=== PATIENT | female | born 1975 | race Two or more races ===

== ENCOUNTER 2019-10-27 15:12 | Emergency (ER) | payer OTHER ==
[~2019-10-27] VITALS: Ht 157.5 cm; Wt 86.6 kg
[2019-10-27 15:22] VITALS: BP 164/63
--- NOTE | 2019-10-27 15:48 | NUR ---
COVID SWAB OBTAINED AND SENT TO LAB.
== END 2019-10-27 15:49 | disposition home or self-care (01) ==
LOC: ER 15:20
DX: Z11.59 Encounter for screening for other viral diseases (principal)
CPT/HCPCS: 99283; C9803; U0003

== ENCOUNTER 2019-11-03 13:14 | Emergency (ER) | payer OTHER ==
[~2019-11-03] VITALS: Ht 157.5 cm; Wt 81.6 kg
[2019-11-03 13:24] VITALS: BP 144/73
--- NOTE | 2019-11-03 13:48 | NUR ---
COVID TESTING DONE & SENT TO LAB.
== END 2019-11-03 13:49 | disposition home or self-care (01) ==
LOC: ER 13:14
DX: Z11.59 Encounter for screening for other viral diseases (principal)
CPT/HCPCS: 99283; C9803; U0003

== ENCOUNTER 2019-11-17 14:33 | Emergency (ER) | payer OTHER ==
--- NOTE | 2019-11-17 15:22 | NUR ---
called for triage not in the waiting room
--- NOTE | 2019-11-17 15:27 | NUR ---
called for triage not in the waiting room
--- NOTE | 2019-11-17 15:34 | NUR ---
called for triage not in the waiting room
== END 2019-11-17 15:46 | disposition left against medical advice (07) ==
LOC: ER 14:33
DX: Z53.21 Procedure and treatment not carried out due to patient leaving prior to being seen by health care provider (principal)

== ENCOUNTER 2019-12-02 14:03 | Emergency (ER) | payer OTHER ==
[~2019-12-02] VITALS: Ht 157.5 cm; Wt 81.6 kg
[2019-12-02 14:07] VITALS: BP 128/81
--- NOTE | 2019-12-02 14:27 | NUR ---
COVID SWAB OBTAINED AND SENT TO LAB.
--- NOTE | 2019-12-02 14:30 | NUR ---
Patient discharged to home in stable condition. Written and verbal after care instructions given. Patient verbalizes understanding of instruction.
== END 2019-12-02 14:32 | disposition home or self-care (01) ==
LOC: ER 14:04
DX: Z03.818 Encounter for observation for suspected exposure to other biological agents ruled out (principal)
CPT/HCPCS: 99283; C9803; U0003

== ENCOUNTER 2019-12-08 14:11 | Emergency (ER) | payer OTHER ==
[~2019-12-08] VITALS: Ht 157.5 cm; Wt 81.6 kg
[2019-12-08 14:15] VITALS: BP 128/77
--- NOTE | 2019-12-08 14:33 | NUR ---
COVID SWAB DONE AND SENT TO LAB
--- NOTE | 2019-12-08 14:36 | NUR ---
Patient discharged to home in stable condition. Written and verbal after care instructions given. Patient verbalizes understanding of instruction. Pt ambulatory with a steady gait
== END 2019-12-08 14:37 | disposition home or self-care (01) ==
LOC: ER 14:13
DX: Z11.59 Encounter for screening for other viral diseases (principal)
CPT/HCPCS: 99283; C9803; U0003

== ENCOUNTER 2019-12-15 11:10 | Emergency (ER) | payer OTHER ==
[~2019-12-15] VITALS: Ht 157.5 cm; Wt 81.6 kg
[2019-12-15 11:15] VITALS: BP 138/77
== END 2019-12-15 11:31 | disposition home or self-care (01) ==
LOC: ER 11:12
DX: Z11.59 Encounter for screening for other viral diseases (principal)
CPT/HCPCS: 99283; C9803; U0003

== ENCOUNTER 2019-12-22 11:00 | Emergency (ER) | payer OTHER ==
[~2019-12-22] VITALS: Ht 157.5 cm; Wt 81.6 kg
[2019-12-22 11:05] VITALS: BP 126/70
--- NOTE | 2019-12-22 11:20 | NUR ---
Patient discharged to home in stable condition. Written and verbal after care instructions given. Patient verbalizes understanding of instruction.
== END 2019-12-22 11:21 | disposition home or self-care (01) ==
LOC: ER 11:00
DX: Z00.8 Encounter for other general examination (principal); Z20.828 Contact with and (suspected) exposure to other viral communicable diseases
CPT/HCPCS: 99283; C9803; U0003

== ENCOUNTER 2020-01-05 15:47 | Emergency (ER) | payer OTHER ==
[~2020-01-05] VITALS: Ht 157.5 cm; Wt 81.6 kg
[2020-01-05 16:03] VITALS: BP 120/79
--- NOTE | 2020-01-05 16:30 | NUR ---
COVID SWAB DONE AND SENT TO LAB
--- NOTE | 2020-01-05 16:31 | NUR ---
Patient discharged to home in stable condition. Written and verbal after care instructions given. Patient verbalizes understanding of instruction. Pt ambulatory with a steady gait
== END 2020-01-05 17:07 | disposition home or self-care (01) ==
LOC: ER 16:45
DX: Z20.828 Contact with and (suspected) exposure to other viral communicable diseases (principal)
CPT/HCPCS: 99283; C9803; U0003

== ENCOUNTER 2020-01-12 15:27 | Emergency (ER) | payer OTHER ==
[~2020-01-12] VITALS: Ht 157.5 cm; Wt 84.4 kg
[2020-01-12 15:30] VITALS: BP 128/72
--- NOTE | 2020-01-12 16:00 | NUR ---
COVID SPECIMEN OBTAINED AND SENT TO LAB.
== END 2020-01-12 16:10 | disposition home or self-care (01) ==
LOC: ER 15:28
DX: Z20.828 Contact with and (suspected) exposure to other viral communicable diseases (principal)
CPT/HCPCS: 99283; C9803; U0003

== ENCOUNTER 2020-01-26 11:13 | Emergency (ER) | payer OTHER ==
[~2020-01-26] VITALS: Ht 157.5 cm; Wt 81.6 kg
[2020-01-26 11:15] VITALS: BP 148/81
--- NOTE | 2020-01-26 11:20 | NUR ---
COVID SPECIMEN OBTAINED AND SENT TO LAB.
--- NOTE | 2020-01-26 11:22 | NUR ---
Patient discharged to home in stable condition. Written and verbal after care instructions given. Patient verbalizes understanding of instruction.
== END 2020-01-26 11:22 | disposition home or self-care (01) ==
LOC: ER 11:14
DX: Z20.828 Contact with and (suspected) exposure to other viral communicable diseases (principal)
CPT/HCPCS: 99283; C9803; U0003

== ENCOUNTER 2020-02-02 08:04 | Emergency (ER) | payer OTHER ==
[~2020-02-02] VITALS: Ht 157.5 cm; Wt 81.6 kg
[2020-02-02 08:07] VITALS: BP 138/66
--- NOTE | 2020-02-02 08:24 | NUR ---
Patient discharged to home in stable condition. Verbal after care instructions given. Patient verbalizes understanding of instruction.
== END 2020-02-02 08:24 | disposition home or self-care (01) ==
LOC: ER 08:05
DX: Z20.828 Contact with and (suspected) exposure to other viral communicable diseases (principal)
CPT/HCPCS: 99283; C9803; U0003

== ENCOUNTER 2020-02-09 09:11 | Emergency (ER) | payer OTHER ==
[~2020-02-09] VITALS: Ht 157.5 cm; Wt 81.6 kg
[2020-02-09 09:12] VITALS: BP 134/81
--- NOTE | 2020-02-09 09:48 | NUR ---
Patient discharged to home in stable condition. Written and verbal after care instructions given. Patient verbalizes understanding of instruction.
== END 2020-02-09 09:50 | disposition home or self-care (01) ==
LOC: ER 09:12
DX: Z20.828 Contact with and (suspected) exposure to other viral communicable diseases (principal)
CPT/HCPCS: 99283; C9803; U0003

== ENCOUNTER 2020-02-16 10:18 | Emergency (ER) | payer OTHER ==
[~2020-02-16] VITALS: Ht 170.2 cm; Wt 81.6 kg
[2020-02-16 10:21] VITALS: BP 120/72
--- NOTE | 2020-02-16 10:23 | NUR ---
CALLED LAB FOR COVID KIT.
--- NOTE | 2020-02-16 10:44 | NUR ---
Patient discharged to home in stable condition. Written and verbal after care instructions given. Patient verbalizes understanding of instruction.
== END 2020-02-16 10:45 | disposition home or self-care (01) ==
LOC: ER 10:20
DX: Z20.828 Contact with and (suspected) exposure to other viral communicable diseases (principal)
CPT/HCPCS: 99283; C9803; U0003

== ENCOUNTER 2020-02-23 10:35 | Emergency (ER) | payer OTHER ==
[~2020-02-23] VITALS: Ht 157.5 cm; Wt 81.6 kg
[2020-02-23 10:38] VITALS: BP 132/81
== END 2020-02-23 10:59 | disposition home or self-care (01) ==
LOC: ER 10:42
DX: Z20.828 Contact with and (suspected) exposure to other viral communicable diseases (principal)
CPT/HCPCS: 99283; C9803; U0003

== ENCOUNTER 2020-03-01 10:36 | Emergency (ER) | payer OTHER ==
[~2020-03-01] VITALS: Ht 160 cm; Wt 81.6 kg
[2020-03-01 10:40] VITALS: BP 123/74
--- NOTE | 2020-03-01 11:13 | NUR ---
Patient discharged to home in stable condition. Written and verbal after care instructions given. Patient verbalizes understanding of instruction.
== END 2020-03-01 11:13 | disposition home or self-care (01) ==
LOC: ER 10:37
DX: Z20.828 Contact with and (suspected) exposure to other viral communicable diseases (principal)
CPT/HCPCS: 99283; C9803; U0003

== ENCOUNTER → 2020-03-08 | Emergency (ER) | payer OTHER ==
[~2020-03-08] VITALS: Ht 157.5 cm; Wt 72.6 kg
[2020-03-08 11:01] VITALS: BP 122/66
--- NOTE | 2020-03-08 11:20 | NUR ---
Patient discharged to home in stable condition. Written and verbal after care instructions given. Patient verbalizes understanding of instruction.
--- NOTE | 2020-03-08 11:20 | NUR ---
covid 19 swab collected and sent to lab
== END | disposition still patient (30) ==
LOC: ER 11:02
DX: Z20.828 Contact with and (suspected) exposure to other viral communicable diseases (principal)
CPT/HCPCS: 99283; C9803; U0003

== ENCOUNTER 2020-03-15 14:36 | Emergency (ER) | payer OTHER ==
[~2020-03-15] VITALS: Ht 157.5 cm; Wt 81.6 kg
[2020-03-15 14:39] VITALS: BP 128/70
--- NOTE | 2020-03-15 14:56 | NUR ---
Patient discharged to home in stable condition. Written and verbal after care instructions given. Patient verbalizes understanding of instruction.
== END 2020-03-15 14:56 | disposition home or self-care (01) ==
LOC: ER 14:37
DX: Z20.828 Contact with and (suspected) exposure to other viral communicable diseases (principal)
CPT/HCPCS: 99283; U0003; C9803

== ENCOUNTER 2020-03-22 11:15 | Emergency (ER) | payer OTHER ==
[~2020-03-22] VITALS: Ht 157.5 cm; Wt 81.6 kg
[2020-03-22 11:20] VITALS: BP 125/82
--- NOTE | 2020-03-22 11:36 | NUR ---
covid 19 swab collected and sent to lab
--- NOTE | 2020-03-22 11:36 | NUR ---
Patient discharged to home in stable condition. Written and verbal after care instructions given. Patient verbalizes understanding of instruction.
== END 2020-03-22 11:37 | disposition home or self-care (01) ==
LOC: ER 11:17
DX: Z20.828 Contact with and (suspected) exposure to other viral communicable diseases (principal)
CPT/HCPCS: 99283; C9803; U0003

== ENCOUNTER → 2020-03-29 | Emergency (ER) | payer OTHER ==
[~2020-03-29] VITALS: Ht 157.5 cm; Wt 81.6 kg
[2020-03-29 10:57] VITALS: BP 119/64
== END | disposition home or self-care (01) ==
LOC: ER 10:57
DX: Z20.828 Contact with and (suspected) exposure to other viral communicable diseases (principal)
CPT/HCPCS: 99283; C9803; U0003

== ENCOUNTER 2020-04-12 13:20 | Emergency (ER) | payer OTHER ==
[~2020-04-12] VITALS: Ht 157.5 cm; Wt 81.6 kg
[2020-04-12 13:23] VITALS: BP 129/84
--- NOTE | 2020-04-12 13:42 | NUR ---
COVID SWAB SENT. Patient discharged to home in stable condition. Written and verbal after care instructions given. Patient verbalizes understanding of instruction.
== END 2020-04-12 13:42 | disposition home or self-care (01) ==
LOC: ER 13:21
DX: Z20.828 Contact with and (suspected) exposure to other viral communicable diseases (principal)
CPT/HCPCS: 99283; C9803; U0003

== ENCOUNTER 2020-04-19 12:09 | Emergency (ER) | payer OTHER ==
[~2020-04-19] VITALS: Ht 157.5 cm; Wt 81.6 kg
[2020-04-19 12:16] VITALS: BP 136/74
--- NOTE | 2020-04-19 12:52 | NUR ---
Patient discharged to home in stable condition. Written and verbal after care instructions given. Patient verbalizes understanding of instruction.
== END 2020-04-19 12:52 | disposition home or self-care (01) ==
LOC: ER 12:10
DX: Z20.828 Contact with and (suspected) exposure to other viral communicable diseases (principal)
CPT/HCPCS: 99283; C9803; U0003

== ENCOUNTER 2020-04-26 09:03 | Emergency (ER) | payer OTHER ==
[~2020-04-26] VITALS: Ht 157.5 cm; Wt 81.6 kg
[2020-04-26 09:12] VITALS: BP 128/76
== END 2020-04-26 09:36 | disposition home or self-care (01) ==
LOC: ER 09:08
DX: Z20.828 Contact with and (suspected) exposure to other viral communicable diseases (principal)
CPT/HCPCS: 99283; C9803; U0003

== ENCOUNTER 2020-05-03 11:37 | Emergency (ER) | payer OTHER ==
[~2020-05-03] VITALS: Ht 157.5 cm; Wt 81.6 kg
[2020-05-03 11:40] VITALS: BP 135/81
--- NOTE | 2020-05-03 12:34 | NUR ---
Patient discharged to home in stable condition. Written and verbal after care instructions given. Patient verbalizes understanding of instruction.
--- NOTE | 2020-05-04 14:17 | NUR ---
COVID PCR RESULT: NEGATIVE
== END 2020-05-03 12:33 | disposition home or self-care (01) ==
LOC: ER 11:40
DX: Z20.828 Contact with and (suspected) exposure to other viral communicable diseases (principal)
CPT/HCPCS: 99283; C9803; U0003

== ENCOUNTER 2020-05-10 08:28 | Emergency (ER) | payer OTHER ==
[~2020-05-10] VITALS: Ht 157.5 cm; Wt 81.6 kg
[2020-05-10 08:37] VITALS: BP 126/72
== END 2020-05-10 09:08 | disposition home or self-care (01) ==
LOC: ER 08:30
DX: Z20.828 Contact with and (suspected) exposure to other viral communicable diseases (principal)
CPT/HCPCS: 99283; C9803; U0003

== ENCOUNTER 2020-05-17 09:46 | Emergency (ER) | payer OTHER ==
[~2020-05-17] VITALS: Ht 157.5 cm; Wt 81.6 kg
[2020-05-17 09:54] VITALS: BP 128/74
--- NOTE | 2020-05-17 09:59 | NUR ---
AT BEDSIDE FOR EVAL.
--- NOTE | 2020-05-17 10:34 | NUR ---
COVID SWAB SENT. Patient discharged to home in stable condition. Written and verbal after care instructions given. Patient verbalizes understanding of instruction.
== END 2020-05-17 10:34 | disposition home or self-care (01) ==
LOC: ER 09:47
DX: Z20.822 Contact with and (suspected) exposure to COVID-19 (principal)
CPT/HCPCS: 99283; C9803; U0003

== ENCOUNTER 2020-05-24 10:19 | Emergency (ER) | payer OTHER ==
[~2020-05-24] VITALS: Ht 157.5 cm; Wt 81.6 kg
[2020-05-24 10:39] VITALS: BP 128/74
--- NOTE | 2020-05-24 11:00 | NUR ---
Patient discharged to home in stable condition. Written and verbal after care instructions given. Patient verbalizes understanding of instruction.
--- NOTE | 2020-05-24 11:01 | NUR ---
UNABLE TO DEPART DUE TO MEDITECH ERROR
== END 2020-05-24 11:15 | disposition home or self-care (01) ==
LOC: ER 10:19
DX: Z20.822 Contact with and (suspected) exposure to COVID-19 (principal)
CPT/HCPCS: 99283; C9803; U0003

== ENCOUNTER 2020-05-31 10:59 | Emergency (ER) | payer OTHER ==
[~2020-05-31] VITALS: Ht 157.5 cm; Wt 81.6 kg
[2020-05-31 11:01] VITALS: BP 133/82
--- NOTE | 2020-05-31 11:15 | NUR ---
COVID SPECIMEN COLLECTED AND SENT TO LAB.
--- NOTE | 2020-05-31 11:17 | NUR ---
Patient discharged to home in stable condition. Written and verbal after care instructions given. Patient verbalizes understanding of instruction.
== END 2020-05-31 11:18 | disposition home or self-care (01) ==
LOC: ER 11:00
DX: Z20.822 Contact with and (suspected) exposure to COVID-19 (principal)
CPT/HCPCS: 99283; C9803; U0003

== ENCOUNTER 2020-06-07 10:11 | Emergency (ER) | payer OTHER ==
[~2020-06-07] VITALS: Ht 157.5 cm; Wt 81.6 kg
[2020-06-07 10:14] VITALS: BP 128/76
== END 2020-06-07 10:51 | disposition home or self-care (01) ==
LOC: ER 10:13
DX: Z20.822 Contact with and (suspected) exposure to COVID-19 (principal)
CPT/HCPCS: 99283; C9803; U0003

== ENCOUNTER 2020-06-14 10:35 | Emergency (ER) | payer OTHER ==
[~2020-06-14] VITALS: Ht 157.5 cm; Wt 81.6 kg
[2020-06-14 10:45] VITALS: BP 128/79
--- NOTE | 2020-06-14 11:03 | NUR ---
Patient discharged to home in stable condition. Written and verbal after care instructions given. Patient verbalizes understanding of instruction.
== END 2020-06-14 11:01 | disposition home or self-care (01) ==
LOC: ER 10:36
DX: Z20.822 Contact with and (suspected) exposure to COVID-19 (principal)
CPT/HCPCS: 99283; C9803; U0003

== ENCOUNTER 2020-06-21 11:00 | Emergency (ER) | payer OTHER ==
[~2020-06-21] VITALS: Ht 157.5 cm; Wt 81.6 kg
[2020-06-21 11:01] VITALS: BP 130/76
== END 2020-06-21 11:25 | disposition home or self-care (01) ==
LOC: ER 11:01
DX: Z20.822 Contact with and (suspected) exposure to COVID-19 (principal)
CPT/HCPCS: 99283; C9803; U0003

== ENCOUNTER 2020-06-28 10:54 | Emergency (ER) | payer OTHER ==
[~2020-06-28] VITALS: Ht 157.5 cm; Wt 81.6 kg
[2020-06-28 10:55] VITALS: BP 126/72
== END 2020-06-28 11:13 | disposition home or self-care (01) ==
LOC: ER 11:08
DX: Z20.822 Contact with and (suspected) exposure to COVID-19 (principal)
CPT/HCPCS: 99283; C9803; U0003

== ENCOUNTER 2020-07-05 10:51 | Emergency (ER) | payer OTHER ==
[~2020-07-05] VITALS: Ht 157.5 cm; Wt 81.6 kg
[2020-07-05 10:55] VITALS: BP 122/76
--- NOTE | 2020-07-05 11:21 | NUR ---
Patient discharged to home in stable condition. Written and verbal after care instructions given. Patient verbalizes understanding of instruction.
== END 2020-07-05 11:22 | disposition home or self-care (01) ==
LOC: ER 10:53
DX: Z02.89 Encounter for other administrative examinations (principal); Z20.822 Contact with and (suspected) exposure to COVID-19
CPT/HCPCS: 99283; C9803; U0003

== ENCOUNTER 2020-07-12 11:00 | Emergency (ER) | payer OTHER ==
[~2020-07-12] VITALS: Ht 157.5 cm; Wt 81.6 kg
[2020-07-12 11:05] VITALS: BP 124/72
--- NOTE | 2020-07-12 11:21 | NUR ---
Patient discharged to home in stable condition. Written and verbal after care instructions given. Patient verbalizes understanding of instruction.
--- NOTE | 2020-07-12 11:21 | NUR ---
COVID SWAB OBTAINED AND SENT TO LAB.
== END 2020-07-12 11:22 | disposition home or self-care (01) ==
LOC: ER 11:02
DX: Z20.822 Contact with and (suspected) exposure to COVID-19 (principal)
CPT/HCPCS: 99283; C9803; U0003

== ENCOUNTER 2020-07-26 10:34 | Emergency (ER) | payer OTHER ==
[~2020-07-26] VITALS: Ht 157.5 cm; Wt 81.6 kg
[2020-07-26 10:40] VITALS: BP 127/74
== END 2020-07-26 10:52 | disposition home or self-care (01) ==
LOC: ER 10:35
DX: Z20.822 Contact with and (suspected) exposure to COVID-19 (principal)
CPT/HCPCS: 99283; C9803; U0003

== ENCOUNTER 2020-08-02 11:00 | Emergency (ER) | payer OTHER ==
[~2020-08-02] VITALS: Ht 157.5 cm; Wt 81.6 kg
[2020-08-02 11:05] VITALS: BP 130/72
--- NOTE | 2020-08-02 11:24 | NUR ---
Patient discharged to home in stable condition. Written and verbal after care instructions given. Patient verbalizes understanding of instruction. Pt ambulatory with a steady gait
== END 2020-08-02 11:25 | disposition home or self-care (01) ==
LOC: ER 11:02
DX: Z20.822 Contact with and (suspected) exposure to COVID-19 (principal)
CPT/HCPCS: 99283; C9803; U0003

== ENCOUNTER 2020-08-16 15:08 | Emergency (ER) | payer OTHER ==
[~2020-08-16] VITALS: Ht 157.5 cm; Wt 63.5 kg
[2020-08-16 15:12] VITALS: BP 116/66
--- NOTE | 2020-08-16 15:29 | NUR ---
Patient discharged to home in stable condition. Written and verbal after care instructions given. Patient verbalizes understanding of instruction.
== END 2020-08-16 15:29 | disposition home or self-care (01) ==
LOC: ER 15:11
DX: Z20.822 Contact with and (suspected) exposure to COVID-19 (principal)
CPT/HCPCS: 99283; C9803; U0003

== ENCOUNTER 2020-08-23 10:41 | Emergency (ER) | payer OTHER ==
[~2020-08-23] VITALS: Ht 157.5 cm; Wt 81.6 kg
[2020-08-23 10:45] VITALS: BP 114/70
--- NOTE | 2020-08-23 10:54 | NUR ---
Patient discharged to home in stable condition. Written and verbal after care instructions given. Patient verbalizes understanding of instruction.
== END 2020-08-23 10:54 | disposition home or self-care (01) ==
LOC: ER 10:46
DX: Z20.822 Contact with and (suspected) exposure to COVID-19 (principal)
CPT/HCPCS: 99283; C9803; U0003

== ENCOUNTER 2020-08-30 10:24 | Emergency (ER) | payer OTHER ==
[~2020-08-30] VITALS: Ht 157.5 cm; Wt 81.6 kg
[2020-08-30 10:27] VITALS: BP 118/66
== END 2020-08-30 10:57 | disposition home or self-care (01) ==
LOC: ER 10:26
DX: Z20.822 Contact with and (suspected) exposure to COVID-19 (principal)
CPT/HCPCS: 99283; C9803; U0003

== ENCOUNTER 2020-09-06 11:37 | Emergency (ER) | payer OTHER ==
[~2020-09-06] VITALS: Ht 157.5 cm; Wt 81.6 kg
[2020-09-06 11:40] VITALS: BP 129/72
--- NOTE | 2020-09-06 12:04 | NUR ---
Patient discharged to home in stable condition. Written and verbal after care instructions given. Patient verbalizes understanding of instruction.
== END 2020-09-06 12:04 | disposition home or self-care (01) ==
LOC: ER 11:43
DX: Z20.822 Contact with and (suspected) exposure to COVID-19 (principal)
CPT/HCPCS: 99283; C9803; U0003

== ENCOUNTER 2020-09-13 11:45 | Emergency (ER) | payer OTHER ==
[~2020-09-13] VITALS: Ht 157.5 cm; Wt 82.6 kg
[2020-09-13 11:46] VITALS: BP 128/74
--- NOTE | 2020-09-13 11:49 | NUR ---
THE PATIENT BIBS FOR ROUTINE COVID TEST, DENIES ANY SYMPTOMS. RESPIRATION REGULAR AND UNLABORED.
== END 2020-09-13 12:10 | disposition home or self-care (01) ==
LOC: ER 11:46
DX: Z20.822 Contact with and (suspected) exposure to COVID-19 (principal)
CPT/HCPCS: 99283; C9803; U0003

== ENCOUNTER 2020-09-20 10:46 | Emergency (ER) | payer OTHER ==
[~2020-09-20] VITALS: Ht 157.5 cm; Wt 81.6 kg
[2020-09-20 10:48] VITALS: BP 124/68
--- NOTE | 2020-09-20 11:07 | NUR ---
Patient discharged to home in stable condition. Written and verbal after care instructions given. Patient verbalizes understanding of instruction.
== END 2020-09-20 11:07 | disposition home or self-care (01) ==
LOC: ER 10:47
DX: Z20.822 Contact with and (suspected) exposure to COVID-19 (principal)
CPT/HCPCS: 99283; C9803; U0003

== ENCOUNTER 2020-09-27 11:20 | Emergency (ER) | payer OTHER ==
[~2020-09-27] VITALS: Ht 157.5 cm; Wt 81.6 kg
[2020-09-27 11:28] VITALS: BP 128/72
--- NOTE | 2020-09-27 11:36 | NUR ---
Patient discharged to home in stable condition. Written and verbal after care instructions given. Patient verbalizes understanding of instruction.
== END 2020-09-27 11:36 | disposition home or self-care (01) ==
LOC: ER 11:22
DX: Z20.822 Contact with and (suspected) exposure to COVID-19 (principal)
CPT/HCPCS: 99283; C9803; U0003

== ENCOUNTER 2020-10-04 12:17 | Emergency (ER) | payer OTHER ==
[~2020-10-04] VITALS: Ht 157.5 cm; Wt 81.6 kg
[2020-10-04 12:21] VITALS: BP 124/70
--- NOTE | 2020-10-04 12:38 | NUR ---
Patient discharged to home in stable condition. Written and verbal after care instructions given. Patient verbalizes understanding of instruction.
== END 2020-10-04 12:38 | disposition home or self-care (01) ==
LOC: EDUNIT# 12:17 → ER 12:17
DX: Z20.822 Contact with and (suspected) exposure to COVID-19 (principal)
CPT/HCPCS: 99283; C9803; U0003

== ENCOUNTER 2020-10-18 11:16 | Emergency (ER) | payer OTHER ==
[~2020-10-18] VITALS: Ht 157.5 cm; Wt 81.6 kg
[2020-10-18 11:21] VITALS: BP 124/70
--- NOTE | 2020-10-18 11:50 | NUR ---
Patient discharged to home in stable condition. Written and verbal after care instructions given. Patient verbalizes understanding of instruction.
== END 2020-10-18 11:51 | disposition home or self-care (01) ==
LOC: ER 11:19
DX: Z20.822 Contact with and (suspected) exposure to COVID-19 (principal)
CPT/HCPCS: 99283; C9803; U0003

== ENCOUNTER 2020-10-25 11:35 | Emergency (ER) | payer OTHER ==
[~2020-10-25] VITALS: Ht 157.5 cm; Wt 82.6 kg
[2020-10-25 11:39] VITALS: BP 118/66
--- NOTE | 2020-10-25 11:42 | NUR ---
THE PATIENT PRESENTED FOR ROUTINE COVID19 TEST. DENIES ANY SYMPTOMS.
--- NOTE | 2020-10-25 12:04 | NUR ---
COVID SWAB DONE AND SENT TO THE LAB
--- NOTE | 2020-10-25 12:04 | NUR ---
Patient discharged to home in stable condition. Written and verbal after care instructions given. Patient verbalizes understanding of instruction.
== END 2020-10-25 12:04 | disposition home or self-care (01) ==
LOC: ER 11:36
DX: Z20.822 Contact with and (suspected) exposure to COVID-19 (principal)
CPT/HCPCS: 99283; C9803; U0003

== ENCOUNTER 2020-11-01 11:23 | Emergency (ER) | payer OTHER ==
[~2020-11-01] VITALS: Ht 157.5 cm; Wt 82.6 kg
[2020-11-01 11:27] VITALS: BP 124/72
--- NOTE | 2020-11-01 11:51 | NUR ---
Patient discharged to home in stable condition. Written and verbal after care instructions given. Patient verbalizes understanding of instruction.
== END 2020-11-01 11:51 | disposition home or self-care (01) ==
LOC: ER 11:42
DX: Z20.822 Contact with and (suspected) exposure to COVID-19 (principal)
CPT/HCPCS: 99283; C9803; U0003